=== PATIENT | male | born 1980 | race Caucasian/White ===

== ENCOUNTER 2019-12-31 22:02 | Emergency (ER) | payer SELFPAY | END 2020-01-01 00:13 | disposition left against medical advice (07) | LOC: ER 22:02 | DX: L03.119 Cellulitis of unspecified part of limb (principal); Z53.21 Procedure and treatment not carried out due to patient leaving prior to being seen by health care provider ==

== ENCOUNTER 2021-05-11 16:24 | Emergency (ER) | payer SELFPAY ==
[~2021-05-11] VITALS: Ht 193 cm; Wt 159.1 kg
[2021-05-11] MEDS ORDERED: IV NORMAL SALINE 1000ML BAG 1,000 ML IV ONE (16:45)
[2021-05-11] MEDS ORDERED: NALOXONE 2 MG/2 ML DISP.SYRIN. IV ONE (16:45)
[2021-05-11 16:48] LABS: HEMATOCRIT 42.8 % (39.0-53.0); HEMOGLOBIN 14.4 g/dL (13.0-17.5); RED BLOOD COUNT 4.55 x10^6/uL (4.30-5.70); RED CELL DISTRIBUTION WIDTH 16.9 % (11.5-14.5); WHITE BLOOD COUNT 7.1 x10^3/uL (4.0-11.0)
[2021-05-11 16:58] LABS: CALCIUM 8.3 mg/dL (8.5-10.1); CREATININE 1.1 mg/dL (0.7-1.3); GFR 73.4; POTASSIUM 3.2 mmol/L (3.5-5.1)
[2021-05-11 17:02] LABS: ACETAMIN < 2 mcg/ml (10-30); ETHANOL < 10 mg/dL (0-10); SALIC < 0.2 mg/dL (2.8-20.0)
[2021-05-11 17:04] LABS: ALBUMIN 3.2 g/dL (3.4-5.0); ALBUMIN/GLOBULIN RATIO 0.6 (1.0-1.7); TOTAL BILIRUBIN 1.1 mg/dL (0.2-1.0)
[2021-05-11 17:10] LABS: BARBITURATES NEG (NEG); BENZODIAZEPINES NEG (NEG); CANNABINOIDS POS (NEG); COCAINE NEG (NEG); METHADONE NEG (NEG); OPIATES NEG (NEG); PHENCYCLIDINE NEG (NEG)
[2021-05-11 17:12] LABS: AMPHETAMINE/METHAMPHETAMINE POS (NEG)
--- NOTE | 2021-05-11 17:33 | PHYS DOC ---
Past Medical History Past Surgical History: Cholecystectomy (ROLANDA BYERS MD) Adult General Chief Complaint Chief Complaint: OVERDOSE HPI HPI The patient is a 40-year-old male who presents for evaluation of an apparent opiate overdose occurring prior to arrival. EMS were reportedly called to scene for multiple unresponsive individuals where "people had been doing drugs all day." Patient was obtunded with agonal respirations and required [id number] ventilation. Intranasal Narcan was administered. This initially did not help but by the time patient arrived here he was responsive and answering some questions. 2 mg of IV Narcan were administered here with good response. Following IV Narcan here, patient was and remains oriented x4 and wide-awake. He admits to "smoking a joint that tasted very weird" just before passing out. Patient denies fevers, nausea or vomiting, upper respiratory congestion/rhinorrhea, headache, focal or lateralizing weakness, numbness or tingling, neck stiffness/pain/meningismus, vision changes, cough, sore throat, shortness of breath or chest pain of any kind, abdominal pain of any kind. Vital signs are appropriate here in the patient is in no acute distress. (ROLANDA BYERS MD) Review of Systems Review of Systems A 12 point review of systems was completed and was negative except where noted in HPI above. (ROLANDA BYERS MD) Current Medications Current Medications Current Medications Medications (Trade) Dose Ordered Sig/Olga Start Time Stop Time Status Last Admin Dose Admin Naloxone HCl (NARCAN 2mg SYRINGE) 2 mg 1X ONCE 05/11/21 16:45 05/11/21 16:46 DC 05/11/21 16:45 2 MG Sodium Chloride 1,000 ml @ 1,000 mls/hr 1X ONCE 05/11/21 16:45 05/11/21 17:44 DC 05/11/21 17:01 1,000 MLS/HR (ODETTE FORRESTER DO) Allergies Allergies Allergies Coded Allergies Type Severity Reaction Last Updated Verified No Known Drug Allergies 05/11/21 No (ODETTE FORRESTER DO) Physical Exam Physical Exam Middle-aged male appearing nontoxic and in no acute distress. Head is normocephalic and atraumatic. Neck is supple and nontender. Oropharynx is moist. Lungs are clear to auscultation at all stations. There is a normal S1 and S2 without rubs or gallops and capillary refill is appropriate, less than 2 seconds globally. Abdomen is soft, nontender nondistended. Skin is warm and dry without cyanosis, clubbing or edema. Psychiatrically, the patient demonstrates appropriate mood and affect and is alert. Neurologically, patient moves all extremities equally, is alert and oriented x4 and no lateralizing deficits are seen (ROLANDA BYERS MD) Current Patient Data Vital Signs Vital Signs Date Time Temp Pulse Resp B/P (MAP) Pulse Ox O2 Delivery O2 Flow Rate FiO2 05/11/21 18:15 92 15 100 05/11/21 16:47 98.2 108/57 (74) Nasal Cannula 6.0 98.2 (ODETTE FORRESTER DO) Lab Values Laboratory Tests Test 05/11/21 16:25 05/11/21 16:48 White Blood Count 7.1 x10^3/uL (4.0-11.0) Red Blood Count 4.55 x10^6/uL (4.30-5.70) Hemoglobin 14.4 g/dL (13.0-17.5) Hematocrit 42.8 % (39.0-53.0) Mean Corpuscular Volume 94 fL (79-100) Mean Corpuscular Hemoglobin 32 pg (25-35) Mean Corpuscular Hemoglobin Concent 34 g/dL (31-37) Red Cell Distribution Width 16.9 % (11.5-14.5) H Platelet Count 257 x10^3/uL (140-400) Sodium Level 144 mmol/L (136-145) Potassium Level 3.2 mmol/L (3.5-5.1) L Chloride Level 104 mmol/L (98-107) Carbon Dioxide Level 27 mmol/L (21-32) Anion Gap 13 (6-14) Blood Urea Nitrogen 13 mg/dL (8-26) Creatinine 1.1 mg/dL (0.7-1.3) Estimated GFR (Cockcroft-Gault) 73.4 BUN/Creatinine Ratio 12 (6-20) Glucose Level 143 mg/dL (70-99) H Calcium Level 8.3 mg/dL (8.5-10.1) L Total Bilirubin 1.1 mg/dL (0.2-1.0) H Aspartate Amino Transferase (AST) 175 U/L (15-37) H Alanine Aminotransferase (ALT) 446 U/L (16-63) H Alkaline Phosphatase 131 U/L (46-116) H Total Protein 9.0 g/dL (6.4-8.2) H Albumin 3.2 g/dL (3.4-5.0) L Albumin/Globulin Ratio 0.6 (1.0-1.7) L Salicylates Level < 0.2 mg/dL (2.8-20.0) L Salicylate Last Dose Date Salicylate Last Dose Time Acetaminophen Level < 2 mcg/ml (10-30) L Acetaminophen Last Dose Date Acetaminophen Last Dose Time Ethyl Alcohol Level < 10 mg/dL (0-10) Urine Opiates Screen Neg (NEG) Urine Methadone Screen Neg (NEG) Urine Barbiturates Neg (NEG) Urine Phencyclidine Screen Neg (NEG) Urine Amphetamine/Methamphetamine Pos (NEG) Urine Benzodiazepines Screen Neg (NEG) Urine Cocaine Screen Neg (NEG) Urine Cannabinoids Screen Pos (NEG) Urine Ethyl Alcohol Neg (NEG) Laboratory Tests 05/11/21 16:25 Laboratory Tests 05/11/21 16:25 (ODETTE FORRESTER DO) EKG EKG Sinus rhythm, rate 112, no acute ST elevation or depression, IA 142, QRS 80, QTc 468, EP interpretation. Nonischemic tracing, intervals appropriate (ROLANDA BYERS MD) Radiology/Procedures Radiology/Procedures [] (ROLANDA BYERS MD) Course & Med Decision Making Course & Med Decision Making 40-year-old male here after an unintentional opiate overdose. Resting comfortably and remains appropriately responsive. Plan for labs and EKG, IV fluids and Zofran as the patient is nauseated. Plan to observe for some time to ensure that the patient does not resedate. 1800: Labs and EKG nonacute. Transition of care to Dr. Forrester pending continued observation to ensure no resedation. (ROLANDA BYERS MD) Dragon Disclaimer Dragon Disclaimer This electronic medical record was generated, in whole or in part, using a voice recognition dictation system. (ROLANDA BYERS MD) Departure Departure Impression: Primary Impression: Opiate overdose Disposition: HOME / SELF CARE / HOMELESS Condition: STABLE Referrals: NO PCP (PCP) Patient Instructions: Narcotic Overdose Additional Instructions: Please call [facility] at to seek help for your mental health and/or drug/alcohol abuse. Problem Qualifiers Primary Impression: Opiate overdose Encounter type: initial encounter Injury intent: undetermined intent Qualified Codes: T40.604A - Poisoning by unspecified narcotics, undetermined, initial encounter ROLANDA BYERS MD May 11, 2021 17:33 ODETTE FORRESTER DO May 11, 2021 21:29
--- NOTE | 2021-05-11 18:10 | EKG ---
[facility] [address] [place] [address] Test Date: 2021-05-11 Test Time: 16:27:17 Pat Name: ELMIRA WU Department: Room: Gender: [employer] Team Member: : 1980 Requested By: ROLANDA BYERS Order Number: [id number] Reading MD: Measurements Intervals [place] Rate: 112 P: 31 CT: 142 QRS: 41 QRSD: 80 T: 46 QT: 342 QTc: 468 Interpretive Statements SINUS TACHYCARDIA ATRIAL PREMATURE COMPLEX(ES) OTHERWISE NORMAL ECG RI6.02 No previous ECG available for comparison
[2021-05-11 21:30] VITALS: BP 173/95
== END 2021-05-11 22:10 | disposition home or self-care (01) ==
LOC: ER 16:24
DX: T40.604A Poisoning by unspecified narcotics, undetermined, initial encounter (principal); Y92.89 Other specified places as the place of occurrence of the external cause
CPT/HCPCS: 36415; 80053; 80307; 80329; 85027; 93005; 96361; 96374; 99285; G0480; J2310; J7030